=== PATIENT | female | born 1945 | race Hispanic/Latino ===

== ENCOUNTER 2017-01-26 16:34 | Emergency (ER) | payer MEDICARE ==
[~2017-01-26] VITALS: Ht 157.5 cm; Wt 95.5 kg
[2017-01-26 16:59] VITALS: BP 175/99; PULSE 86; RESP 16; O2SAT 96
[2017-01-26 17:25] LABS: BASOPHILS % (AUTO) 0.7 % (0-3); EOSINOPHILS % (AUTO) 1.7 % (0-5); MONOCYTES % (AUTO) 8.8 % (4-12); Mean Corpuscular Hemoglobin 30.3 pg (27.0-35.0); Mean Corpuscular Volume 90.9 fL (81-100); Platelet Count 368 bil/L (150-400)
--- NOTE | 2017-01-26 17:37 | DRSVH ---
PROCEDURE: X-RAY CHEST ONE VIEW, PORTABLE ([id number]) INDICATIONS: cp TECHNIQUE: One view of the chest was acquired. COMPARISON: None. FINDINGS: Surgical changes and devices: None. Lungs and pleura: Lung volumes are low. Platelike atelectasis is present in the left midlung. No pleu ral effusion or pneumothorax. Mediastinum: Mediastinal contours appear normal. Heart size is normal. Bones and chest wall: No suspicious bony lesions. Overlying soft tissues appear unremarkable. IMPRESSION: Low lung volumes and atelectasis. Dictated by: Charlene Fay M.D. on 01/26/2017 at 17:29 Approved by: Charlene Fay M.D. on 01/26/2017 at 17:30
[2017-01-26 17:38] LABS: TROPONIN T < 0.010 ug/L (0.0-0.011)
--- NOTE | 2017-01-26 17:42 | ED.REPORT ---
HPI-Chest Pain 40 and Over Date of Service Jan 26, 2017 ED Provider: Marv Macario MD The patient is a 71 year old female w/ a hx of DM who presents to the ED due to episode of left chest pain radiating into her left arm at 1500. AT the ED she does not currently have any chest pain. Associated symptoms include SOB, nausea , vomiting, and dysuria. Yesterday she felt very fatigued and had no appetite. She denies diaphoresis, increased urination and any hx of cardiac disease. Her PCP is Dr. Mason in [facility]. She has been incontinent but this is baseline. The patient is currently taking she takes Byetta, Lantus, Micardis, thyroxine, metoprolol, cosar, Prozac, Michele. Nursing Notes Stated Complaint: CHEST PAIN Chief Complaint: Chest Pain Nursing Notes Reviewed: Yes Allergies: Coded Allergies: oxycodone (Verified Allergy, Mild, rash, 01/26/17) Scheduled Famotidine (Pepcid) 20 Mg Tablet 20 MG PO BID General Time Seen by MD: 17:41 Chief Complaint Chest pain Hx Obtained From: Patient Arrived By: Walk-in Sudden in Onset?: Yes Onset Occurred: 1 - 4 hours ago Symptom Duration: Since onset Location: : Chest left Quality: Painful Radiation: : Arm left Severity: Current: No pain currently Severity: Maximum: Moderate Associated with: Reports: Nausea, Shortness of Breath, Vomiting Recent Healthcare: No recent doctor visit, No recent hospitalization Similar Sx Previous: No Past Medical History Past Medical History hypothyroidism DM insulin dependent HTN Past Surgical History broken ankle Reports: Hysterectomy Smoking History Unknown if Ever Smoker Social History Other Social History: Good social support, , From out of town Ambulatory Status Independent Review of Systems Constitutional: Reports: Fatigue Respiratory: Reports: Shortness of breath Cardiovascular: Reports: Chest pain GI: Reports: Nausea, Vomiting Skin: Denies Diaphoresis Complete sys rev & neg: except as marked. Female: Reports: Dysuria, Incontinence, Denies: Urinary frequency, Urination decreased Physical Exam Initial Vital Signs Vital Signs (First) Date Time Temp Pulse Resp B/P Pulse Ox O2 Delivery O2 Flow Rate FiO2 01/26/17 16:59 37.2 86 16 175/99 96 Room Air Initial VS: Reviewed General/Constitutional: Awake, Alert, Cooperative, Not toxic appearing Respiratory / Chest: Atraumatic, Breath sounds NL, Breath sounds = bilat, No respiratory distress Cardiovascular: Heart rate NL, Regular rhythm, Heart sounds NL, No gallop, No murmurs, No rubs Abdomen: Atraumatic, Soft, Non-tender, BS normoactive Neck: Atraumatic, Supple Back: Atraumatic, No CVA tenderness Lower Extremity / Pelvis / MS: Atraumatic, Inspection NL, Full range of motion , No deformity Skin: Atraumatic, Color NL, No rash Head / Eyes: Atraumatic, Normocephalic Upper Extremity / MS: Atraumatic, Inspection NL, Full range of motion, No deformity Interpretation & Diagnostics Lab Results Interpretation Result Diagram: 01/26/17 1650 01/26/17 1650 Test 01/26/17 16:50 01/26/17 19:13 01/26/17 19:24 White Blood Count 9.0th/mm3 (3.8-10.1) Red Blood Count 4.49mil/mm3 (3.90-5.20) Hemoglobin 13.6g/dL (12.0-15.6) Hematocrit 40.8% (35.0-46.0) Mean Corpuscular Volume 90.9fL (81-100) Mean Corpuscular Hemoglobin 30.3pg (27.0-35.0) Mean Corpuscular Hemoglobin Concent 33.3% (32.0-37.0) Red Cell Distribution Width 13.2% (12.3-15.4) Platelet Count 368bil/L (150-400) Neutrophils (%) (Auto) 67.0% (40-74) Lymphocytes (%) (Auto) 21.5% (14-46) Monocytes (%) (Auto) 8.8% (4-12) Eosinophils (%) (Auto) 1.7% (0-5) Basophils (%) (Auto) 0.7% (0-3) Hold Purple Top Tube Received (Received) Hold Blue Top Tube Received (Received) Sodium Level 133mEq/L (134-144) Potassium Level 4.8mEq/L (3.5-5.2) Chloride Level 92mEq/L (97-108) Carbon Dioxide Level 26mmol/L (18-29) Blood Urea Nitrogen 15mg/dL (8-27) Creatinine 1.03mg/dL (0.57-1.00) Estimat Glomerular Filtration Rate 76mL/min (>59) Glucose Level 158mg/dL (60-99) Calcium Level 9.1mg/dL (8.5-10.1) Magnesium Level 1.9mg/dL (1.6-2.6) Total Bilirubin 0.3mg/dL (0.0-1.2) Aspartate Amino Transf (AST/SGOT) 37U/L (0-50) Alanine Aminotransferase (ALT/SGPT) 23U/L (0-32) Alkaline Phosphatase 94U/L (25-165) Total Protein 8.2g/dL (6.4-8.4) Albumin 4.2g/dL (3.4-5.0) Hold Oblong Top Tube Received (Received) Hold Koch Top Tube Received (Received) Troponin T < 0.010ug/L (0.0-0.011) Urine Color Straw (YELLOW) Urine Appearance Clear (CLEAR,HAZY) Urine pH 5.5 (5.0-8.0) Urine Specific [place] 1.005 (1.003-1.035) Urine Protein 30mg/dL (NEG,TRACE) Urine Glucose (UA) 250mg/dL (NEGATIVE) Urine Ketones Negativemg/dL (NEGATIVE) Urine Occult Blood Trace (NEGATIVE) Urine Nitrite Negative (NEGATIVE) Urine Bilirubin Negative (NEGATIVE) Urine Urobilinogen Normalmg/dL (NORMAL) Urine Leukocyte Esterase Negative (NEGATIVE) Urine RBC 3-10/hpf (0-2) Urine WBC 0-5/hpf (0-5) Urine Epithelial Cells Few/hpf (NONE-MOD) Urine Crystals None seen (NONE SEEN) Urine Bacteria Few/hpf (NONE-FEW) Urine Hyaline Casts None/lpf (NONE) Urine Granular Casts None seen (NONE SEEN) Urine Waxy Casts None seen (NONE SEEN) Urine Red Blood Cell Casts None seen (NONE SEEN) Urine White Blood Cell Casts None seen (NONE SEEN) Urine Mucus None seen (None Seen) Urine Trichomonas None seen (NONE SEEN) Urine Yeast None (NONE SEEN) Urinalysis Comment None Urine Culture Reflexed Not indicated ECG Interpretation Time: 17:52 Normal ECG Interpretation: Normal ECG w/ rate of... (84) X-Ray Chest Interpretation Chest Xray Interpretation: IMPRESSION: Low lung volumes and atelectasis. Dictated by: Charlene Fay M.D. on 01/26/2017 at 17:29 Approved by: Charlene Fay M.D. on 01/26/2017 at 17:30 View: Portable Interpretation / Wet Read by: Interpret - Radiologist Re-Eval/Medical Decision Time of Eval: 18:55 Re-Evaluation/Progress Note: Plan for UA and repeat troponin. Counseled Regarding: Diagnosis, Lab results, Need for follow-up, When/why to return to ED Discharge & Departure Primary Impression: Chest pain Chest pain type: unspecified Qualified Code: R07.9 - Chest pain, unspecified Disposition: Home Discharge Condition All VS Reviewed: Yes Condition: Stable Patient Instructions: Chest Pain (ED) Additional Instructions: Emergency Department evaluation included interview, examination, labs, urine analysis, EKG, and chest x-ray. We found no evidence of an acute heart problem tonight lungs are clear. We repeated blood testing looking for damage to heart muscle and this was still normal. There are no emergent causes for your symptoms. Your symptoms may be due to acid reflux. Try taking pepcid twice daily. . Plan to follow up with primary care within the following week. Return to the Emergency Department if you experience any new or worsening symptoms including difficulty breathing and increased chest pain. Scribe Attestation Portion of this note were transcribed by Regina Castrejon. I, Dr. Macario, personally performed the history, physical exam, and medical decision-making: I reviewed and confirmed the accuracy for the information in the transcribed note. Signed by: daisy Crocker, 01/26/17 Marv Hernandez MD Jan 26, 2017 17:42 Regina Castrejon Jan 26, 2017 17:58 Regina Castrejon Jan 26, 2017 17:58
[2017-01-26 17:46] LABS: Magnesium 1.9 mg/dL (1.6-2.6)
[2017-01-26 18:26] VITALS: BP 164/93; PULSE 82; RESP 16; O2SAT 96
[2017-01-26 19:35] LABS: APPEARANCE,URINE CLEAR (CLEAR,HAZY); COLOR,URINE STRAW (YELLOW); OCCULT BLOOD,URINE TRACE (NEGATIVE); PH,URINE 5.5 (5.0-8.0); UROBILINOGEN,URINE NORMAL (NORMAL)
[2017-01-26 19:56] VITALS: BP 164/88; PULSE 82; RESP 16; O2SAT 98
[2017-01-26] MEDS ORDERED: FAMO20T PO (20:35)
[2017-01-26 20:46] VITALS: BP 164/88; PULSE 82; RESP 16; O2SAT 98
== END 2017-01-26 20:47 | disposition home or self-care (01) ==
LOC: SED 16:34 → EDBD 16:34 → SED 20:47
DX: R07.9 Chest pain, unspecified (principal); E11.9 Type 2 diabetes mellitus without complications; I10 Essential (primary) hypertension; E03.9 Hypothyroidism, unspecified; Z79.4 Long term (current) use of insulin; Z88.5 Allergy status to narcotic agent